=== PATIENT | male | born 1960 | race Caucasian/White ===

== ENCOUNTER 2024-11-10 10:28 | Outpatient (AMB) | payer OTHER, SELFPAY ==
--- NOTE | 2024-11-10 10:30 | MHC.OFFVIS ---
Intake Visit Reasons: PER DR LEY Allergies cat dander (CATS) Allergy (Unknown, Unverified 12/01/19 15:41) TROUBLE BREATHING, RUNNY NOSE dog dander (DOGS) Allergy (Unknown, Unverified 12/01/19 15:41) ANAPHYLAXIS Penicillins Allergy (Unknown, Unverified 12/01/19 15:41) HIVES HPI Comments Details: 64 years old man with complex underlying psychiatric history with diagnosis of complex PTSD, insulin-dependent diabetes, and osteoarthritis with bilateral knee replaced, started having forgetfulness around 2023 or a year before. He also had chronic difficulty with walking or with balancing especially upon waking up. One day he woke up and lost his balance and fell down hitting his head on the ground. He had a head MRI done last year and then another 1 this year, which according to radiologist suggested possibility of normal pressure hydrocephalus prompting this consultation. He was not known to have any seizure disorder. He was here with his . He is suspected Normal Pressure Hydrocephalus and gait disturbance. He has experienced balance issues for over three years, with a significant event occurring on October 12 when he fell and struck his head while attempting to stand. The patient?s balance problems are particularly evident when standing from a seated position or upon waking in the morning. He reports neuropathy, characterized by absent reflexes, contributing to his instability. This neuropathy is likely tied to his Type 2 Diabetes Mellitus, which requires daily insulin injections. The patient's medical history includes bilateral knee replacements for osteoarthritis. Additionally, the patient has shown signs of cognitive decline, which have raised concerns regarding Alzheimer's Disease. His psychiatric history is notable for Major Depressive Disorder, PTSD stemming from past trauma, and agoraphobia with panic attacks. Evaluation following a brain scan suggested possible Normal Pressure Hydrocephalus, although contributing factors such as osteoarthritis, neuropathy, and a past traumatic brain injury at a young age complicate the clinical picture. Review of Systems Const Details: - Neurological: Reports loss of balance, absent reflexes, and cognitive decline; Denies seizures. - Musculoskeletal: Reports bilateral knee replacements due to osteoarthritis. - Endocrinological: Reports diabetes managed with insulin. - Psychiatric: Reports history of Major Depressive Disorder, PTSD, anxiety, and agoraphobia. - Cognitive: Reports memory impairment and difficulty performing routine tasks. Physical Exam Extrem Other: Mental Status: Alert and oriented to person, place, and time. Normal attention. Normal spontaneous speech, fluency, and comprehension. Affect was depressed. Cranial Nerves: CN II: Visual pozo full to confrontation, visual acuity intact. CN III, IV, : Pupils equal, round, reactive to light and accommodation. Extraocular movements are normal. CN V: Facial sensation is normal. CN VII: Facial movements symmetrical. CN VIII: Hearing intact to bedside conversation is normal. CN IX, X: Palate elevates symmetrically. CN XI: Shoulder shrug and head turn symmetrical. CN XII: Tongue midline without atrophy or fasciculations. Deep tendon reflexes were absent with flat plantars. Joint position and vibratory sensations were absent. Slow and cautious gait with a walker with no sign of magnetic gait Extrapyramidal: Full facial expressions and blinking. No rigidity. Movements are appropriate with no tremor or abnormality. Speech: Normal; no dysarthria or tremor. Assessment & Plan Assessment & Plan (1) Multifactorial gait disorder: Code(s): R26.89 - Other abnormalities of gait and mobility Category: Medical Plan: During the visit, I discussed the various neurological and psychiatric issues presented by the patient, primarily focusing on the suspected Normal Pressure Hydrocephalus and balance issues. We explored the possibility that his neuropathic symptoms, resulting from diabetes, could contribute significantly to his gait problems. For each condition, I highlighted the appropriate management strategies, diagnostic procedures, and potential treatments, such as the need for further neurocognitive assessment to investigate the possibility of Alzheimer's Disease. Concerns were shared regarding the need for EMG studies to gauge the extent of peripheral neuropathy. I emphasized the importance of therapy and medication management for the patient's psychiatric conditions, reiterating the need for ongoing psychiatric support. (2) Dementia: Code(s): F03.90 - Unspecified dementia, unspecified severity, without behavioral disturbance, psychotic disturbance, mood disturbance, and anxiety Category: Medical Qualifiers: Dementia type: unspecified type Dementia severity: mild Dementia behavioral or psychological symptom: with other behavioral disturbance Qualified Code(s): F03.A18 - Unspecified dementia, mild, with other behavioral disturbance (3) Peripheral neuropathy: Code(s): G62.9 - Polyneuropathy, unspecified Category: Medical Qualifiers: Peripheral neuropathy type: polyneuropathy, unspecified Qualified Code(s): G62.9 - Polyneuropathy, unspecified Plan Impression: a: Multifactorial (osteoarthritis s/p b/l knee replacement, severe neuropathy, cerebral atrophy) gait disorder. 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 Overall picture is not suggestive of NPH c: Underlying complex PTSD related to childhood experience Rec: a: EMG/NCS legs to classify and grade neuropathy. It might be diabetic in nature b: Common sense precautions to avoid falling Orders: Orders NE nerve conduction velocity Today G62.9 - Polyneuropathy, unspecified NE electromyogram (EMG) Today G62.9 - Polyneuropathy, unspecified Coding Level of Care Code New Pt Level 5 (97647) Diagnoses Multifactorial gait disorder R26.89 Mild dementia with other behavioral disturbance, unspecified dementia type F03.A18 Dementia type: unspecified type Dementia severity: mild Dementia behavioral or psychological symptom: with other behavioral disturbance Peripheral polyneuropathy G62.9 Peripheral neuropathy type: polyneuropathy, unspecified
--- OUTSIDE RECORDS SUMMARY | 2024-11-10 11:46 | XMS_ITS | Encounter Summary ---
Author Organization [facility] Address [address] [place] [address] Phone Care Team Providers Care Manager Compensation Name Role Phone Catrachita Vernon Primary Care Provi nba Catrachita Vernon Primary Care Provi nba Maksim Nuñez MD Unavailable [phone] Encounter Details Date Type Department Care Team (Late st Contact Info) Description 05/31/2018 Ancillary Orders [facility] [address] [facility] [address], [address] [place] [address] Kasey Rosales MD [phone] [place] [address] [email or web address] Social History Tobacco Use Types Packs/Day Years Used Date Smoking Tobacco: Never Assessed Sex and Gender Information Value Date Recorded Sex Assigned at Not on file Legal Sex Male 1:10 PM EST Gender Identity Not on file Sexual Orientation Not on file documented as of this encounter Plan of Treatment Upcoming Encounters Date Type Department Care Team (Late st Contact Info) Description 04/05/2025 3:30 PM EST Office Visit [facility] Specialties [address] [facility], [address] [place] [address] Wolfgang Chew MD [address] [place] [phone] [email or web address] documented as of this encounter Visit Diagnoses Not on filedocumented in this encounter Care Teams Manager Compensation Relationship Specialty Start Date End Date Catrachita Vernon PA [address] [phone] PCP - General Case Planner 05/21/18 06/01/18 Catrachita Vernon PA [address] [phone] PCP - General Case Planner 06/02/18 Maksim Nuñez MD [address] [phone] Cardiology 06/02/18 documented as of this encounter Additional Source Comments The information contained in this document represents components of the legal health record. It is not the complete legal health record.[facility]
--- OUTSIDE RECORDS SUMMARY | 2024-11-10 11:46 | XMS_ITS | Encounter Summary ---
Author Organization [facility] Address [address] [place] [address] Phone Care Team Providers Care Engineering Program Manager Name Role Phone Catrachita Vernon Primary Care Provi nba Catrachita Vernon Primary Care Provi nba Maksim Nuñez MD Unavailable [phone] Reason for Referral * MRI/CAT Scan - Closed Specialty Diagnoses / Procedures Referred By Justin t Referred To Contact Radiology Diagnoses Chest pain Procedures NC Myocardial Perfusion Exercise Multiple NC Myocardial Perfusion Stress Single Kasey Rosales MD Phone: tel: fax: mailto:[email or web address] Referral ID Status Reason Start Date Expiration Date Visits Re quested Visits Authorized [id number] Closed 05/21/2018 07/20/2018 1 1 Encounter Details Date Type Department Care Team (Late st Contact Info) Description 05/31/2018 Ancillary Orders [facility] [address] [facility] [address], [address] [place] [address] Kasye Rosales MD [phone] [place] [address] [email or web address] Chest pain Social History Tobacco Use Types Packs/Day Years [...] Description 04/05/2025 3:30 PM EST Office Visit [facility] Specialties [address] [facility], [address] [place] [address] Wolfgang Chew MD [address] [place] [address] [place] [phone] [email or web address] documented as of this encounter Results * NC Myocardial Perfusion Exercise Multiple (06/01/2018 1:33 PM EDT) Nuc Stress EF 47 % LV Systolic Volume 62 mL LV Diastolic Volume 130 mL EF 52 % LV Systolic Volume Index 57 mL/m2 LV Diastolic Volume Index 109 mL/m2 Anatomical Region Laterality Modality Heart, Vascular Ultrasound Addenda Addendum by Ubaldo Rodriguez MD on 06/16/2018 12:07 PM EDT Normal study. There is no evidence of myocardial infarction or ischemia. Normal LV size and function with no regional wall motion abnormalities. Very low likelihood of hemodynamically significant coronary artery disease. Low risk study for myocardial events or cardiac in the next two years. Nuclear Study Quality Overall image quality is good. TYPE OF STUDY: Myocardial Perfusion Imaging after exercise utilizing a standard Willis protocol with gated SPECT. PROTOCOL USED: One day stress protocol only in the supine and prone position. Images were obtained after 20 minutes in gated tomographic technique. Images were processed in SPECT format, reconstructed tomographically and compared icen-am-yzxr in short axis, horizontal long axis and vertical long axis. DOSE: Technetium 99m Sestamibi 12.5 mCi injected intravenously during stress on 05/25/2018 with post injection scan time of 20 minutes. Technetium 99m Sestamibi 12.5 mCi injected intravenously during rest on 06/01/2018 with post injection scan time of 45 minutes.. Study was gated successfully. Perfusion Defect The Lung Heart Ratio is .31 . Response to Stress Patient exercised for 7:22 minutes on a standard Willis protocol achieving 10.1 METs and 91% MPHR (146 BPM). The test was terminated due to knee pain and fatigue. SUMMARY: 1. RESTING ECG: Normal sinus rhythm with RSR pattern in leads III and aVF and poor R wave progression, no acute ischemic changes. 2. EXERCISE ECG: No ECG changes that meet criteria for ischemia. 3. SYMPTOMS: No chest pain. 4. PHYSIOLOGY: Appropriate exercise physiology. Resting heart rate of 75 bpm jonah to a max heart rate of 146 bpm, this represents 91% MPHR. Resting BP of 128/80 jonah to a max BP of 200/64. Vital signs stable and returned to baseline prior to discharge from the lab. Achieved 10.1 METs consistent with good functional capacity for age. 5. ARRHYTHMIA: No ectopy noted. CONCLUSION: Normal ECG portion of exercise nuclear stress test without ECG changes suggestive of ischemia and without symptoms concerning for angina. Appropriate exercise physiology. Good functional capacity. Ocampo treadmill score of +7.5 consistent with mild risk. Nuclear images and report to follow. Irma Katz PA-C. Perfusion Comments There is no evidence of transient ischemic dilation (TID). The TID ratio was 0.9. Stress Function Comments Post-stress ejection fraction was 47%. Stress end diastolic index: 109 mL/m2. Stress end systolic index: 57 mL/m2. Nuclear Prior Study There is no prior study available for comparison. Rest Function Comments Resting ejection fraction was 52%. Rest end diastolic index: 130 mL. Rest end systolic index: 62 mL. Perfusion Scoring Stress Summed Score: 0 Percent Normal: 0.00% The left ventricular perfusion is normal. Perfusion Scoring Resting Summed Score: 0 Percent Normal: 0.00% The left ventricular perfusion is normal. us Kasey Rosales MD CV NM CARDIAC Edited Result - Final documented in this encounter Visit Diagnoses Diagnosis Chest pain Unspecified chest pain Chest pain Unspecified chest pain Chest pain of uncertain etiology- Primary documented in this encounter Care Teams Engineering Program Manager Relationship Specialty Start Date End Date Catrachita Vernon PA [address] [facility] [address] [place] [phone] PCP - [employer] Salesperson 05/21/18 06/01/18 Catrachita Vernon PA [address] [phone] PCP - [employer] Salesperson 06/02/18 Maksim Nuñez MD [address] [phone] Cardiology 06/02/18 documented as of this encounter Additional Source Comments The information contained in this document represents components of the legal health record. It is not the complete legal health record.[facility]
--- OUTSIDE RECORDS SUMMARY | 2024-11-10 11:46 | XMS_ITS | Patient Health Record ---
Author Organization [facility] [place] Address [address] [place] [address] Care Team Providers Care Email Production Specialist Name Role Phone Saulo BOUDREAUX, Catrachita Primary Care Provider Unav ailable Josy Nieves Unavailable [phone] Allergies Allergen (clinical drug ingredient) Drug/Non Drug Allergy documented on EMR Reaction Allergy Type Onset Date Status Penicillin rash Drug Allergy Active Cat dander Cat Dander severe reaction Allergy Ac tive Dog dander Dog Dander severe reaction Allergy Ac tive Reason For Referral No Information Medications Medication SIG (Take, Route, Frequency, Duration) Notes Start Date End Date Status ProAir HFA 108 (90 Base) MCG/ACT 2 puffs as needed Inhalation Active Pravastatin Sodium 40 MG Orally Once a day Active Centrum Silver Activ e HumaLOG via sliding scale as directed Active Esketamine HCl (84 MG Dose) Active Lantus as directed Active Melatonin 5 MG 1 tablet in the even ing Orally Once a day; Duration: 30 day(s) Active metFORMIN HCl 1000 MG Orally twice a day Active traZODone HCl 100 MG 1 tablet at bedtime Orally Active Extra Depth Diabetic Shoes with 3 Pair Custom heat-molded multi-density innersoles for 1 year Dx: 01/18/2018 Not-Taking buPROPion HCl ER (XL) 300 MG Orally Once a day Active Bactrim DS 800-160 MG 1 tablet Orally ev carol 12 hrs; Duration: 5 days 04/26/2021 Not-Taking Valsartan-hydroCHLOROthia zide 80-12.5 MG Orally Once a day Active ALPRAZolam 1 MG Orally 4 times a day Active Aspirin 81 MG Orally Once a day Active Synthroid 125 MCG Orally Once a day Active Immunizations Vaccine Route Administration Date Status Comme nts Influenza Unknown 01/18/2018 Administered Influenza Unknown 12/14/2020 Administered COVID-19 Moderna Vaccine Unknown 01/13/2021 Administered First Dose:04/19/2020 Second Dose:05/17/2020 Social History Tobacco Use: Social History Observation Description Date Details (start date - stop date) Former Smoker NA - 01/24/2006 Tobacco Use/Smoking Question Answer Notes Are you a: former smoker When did you stop smoking? 01/24/2006 Additional Findings: Tobacco Non-User Ex-cigaret te smoker Alcohol Screen Question Answer Notes Did you have a drink contain ing alcohol in the past year? Yes How often did you have a dri nk containing alcohol in the past year? Monthly or less (1 point) Points 1 Interpretation Negative Tobacco use other than smoking: Question Answer Notes Are you an other tobacco user? No Problems Problem Type SNOMED Code ICD Code Onset Dates Problem Status W/U Status Risk Notes Problem Acquired hallux valgus (97186186) Hallux valgus (acquired), right foot (M20.11) Active confirmed Problem Polyneuropathy due to type 2 diabetes mellitus (954681459) Type 2 diabetes mellitus with polyneuropathy (E11.42) Active confirmed Problem Leg length discrepancy (732964455) Leg length discrepancy (M21.70) Active confirmed Problem Posttraumatic stress disorder (67343052) PTSD (post-traumatic stress disorder) (F43.10) Active confirmed Problem Severe major depression, single episode, without psychotic features (68109957) Major depress dis, severe (F32.2) Active confirmed Plan Of Treatment Pending Test Test Name Order Date [id number] SKIN LESIONS, 2 TO 4 01/19/20 18 Insurance Providers Payer Name Payer Address Payer Phone Subscriber Number Group Number Insured Name Patient Relationship to Insured Coverage Start Date Coverage End Date [facility] [address] [place] [address] [id number] Aniyah Sinha Spouse - patient is the spouse of the insured Medical (General) History Medical History History ICD Code Anxiety asthma Back,Hip,and Knee pain CAD (Cholesterol) Broken bones Hypertension Depression Gall bladder problems Diabetes mellitus Neuropathy Psoriasis/eczema Psychiatric disorder thyroid complex ptsd Chicken pox Cataracts Surgical History Surgery Date(Month/Year) tonsils removed 1965 left knee meniscus 1996 left shoulder surgery 2000 right knee meniscus 2009 gall bladder removed and hernia repair 1
--- OUTSIDE RECORDS SUMMARY | 2024-11-10 11:46 | XMS_ITS | Clinical Summary ---
Author Organization [facility] Address [address] [place] [address] Phone Care Team Providers Care Immigration Specialist Name Role Phone Catrachita Vernon Primary Care Provi nba Maksim Nuñez MD Unavailable [phone] Social History Tobacco Use Types Packs/Day Years Used Date Smoking Tobacco: Never Assessed Education Answer Date Recorded Are you interested in more education? Not on misty e 07/11/2022 Are you concerned about learning? Not on file 07/11/2022 No 07/11/2022 No 07/11/2022 Digital Access Answer Date Recorded No 08/09/2022 No 08/09/2022 No 08/09/2022 Reliable internet access at home? Not on file 08/09/2022 Device with a working camera? Not on file Sex and Gender Information Value Date Recorded Sex Assigned at Not on file Legal Sex Male 1:10 PM EST Gender Identity Not on file Sexual Orientation Not on file Last Filed Vital Signs Vital Sign Reading Time Taken Comments Blood Pressure 158/60 05/25/2018 1:27 PM EDT Pulse - - Temperature - - Respiratory Rate - - Oxygen Saturation - - Inhaled Oxygen Concentration - - Weight - - Height - - Body Mass Index - - Plan of Treatment Upcoming Encounters Date Type Department Care Team (Late st Contact Info) Description 04/05/2025 3:30 PM EST Office Visit [facility] Specialties [address] [facility], [address] [place] [address] Wolfgang Chew MD [address] [phone] [email or web address] Maintenance Due Date Last Done Comments LIPID PANEL 1958 DEPRESSION SCREENING 1970 SMOKING Hx and SMOKELESS TOBACCO SCREENING 1971 HEPATITIS C SCREENING 1976 COLOGUARD 2003 COLONOSCOPY 2003 COLORECTAL CANCER SCREENING 2003 FIT TEST 2003 FOBT 2003 SIGMOIDOSCOPY 2003 VIRTUAL COLONOSCOPY 2003 ZOSTER VACCINES (1 of 2) 2008 PNEUMOCOCCAL VACCINES (50+ years) (3 of 3 - PCV20 or PCV21) 01/02/2021 01/03/2016, 06/24/2007 COVID-19 VACCINE (2 - 2023-2 5 season) 2023 05/09/2020 Adult Td,Tdap Booster 07/17/2027 07/16/2017 , 12/23/2007 RSV VACCINE (1 - 1-dose 75+ series) 2033 HEPATITIS A VACCINES Aged Out No long er eligible based on patient's age to complete this topic HIB VACCINES Aged Out No longer eligi ble based on patient's age to complete this topic MENINGOCOCCAL VACCINES (ACWY) Aged Out No longer eligible based on patient's age to complete this topic MENINGOCOCCAL VACCINES (B) Aged Out N o longer eligible based on patient's age to complete this topic Medical Devices Not on file Procedures Procedure Name Priority Date/Time Associated Diagnosis Comments OUTSIDE LAB 10/19/2024 from Last 3 Months Results * Outside Lab (10/19/2024) us Scanning Interface Provider LAB BLOOD ORDERABLES Final Result from Last 3 Months Insurance [facility] Member Subscriber Plan / Payer (Ef fective 2024-Present) Name:Darrius Sinha Relation to Subscriber:Self Name:Darrius Sinha Payer ID:Not on file Type:PPO Address: [place] [id number] Care Teams Immigration Specialist Relationship Specialty Start Date End Date Catrachita Vernon PA [address] [phone] PCP - General Refrigerator Tester 06/02/18 Maksim Nuñez MD [address] [phone] Cardiology 06/02/18 Additional Source Comments The information contained in this document represents components of the legal health record. It is not the complete legal health record.[facility]
== END 2024-11-10 16:25 | disposition home or self-care (01) ==
PROVIDERS: Visit Provider Psychiatry & Neurology Neurology
DX: R26.89 Other abnormalities of gait and mobility (principal); F03.A18 Unspecified dementia, mild, with other behavioral disturbance; G62.9 Polyneuropathy, unspecified
CPT/HCPCS: 99203

== ENCOUNTER 2024-11-21 09:48 | Outpatient (REF) | payer OTHER, SELFPAY ==
--- NOTE | 2024-11-21 11:03 | EMG_ITS ---
Chief Complaint: Balance issues, polyneuropathy History: 64 years old man with complex underlying psychiatric history with diagnosis of complex PTSD, insulin-dependent diabetes, and osteoarthritis with bilateral knee replaced, started having forgetfulness around 2023 or a year before. He also had chronic difficulty with walking or with balancing especially upon waking up. One day he woke up and lost his balance and fell down hitting his head on the ground. He had a head MRI done last year and then another 1 this year, which according to radiologist suggested possibility of normal pressure hydrocephalus prompting this consultation. H/O Type 2 diabetes, knee replacement, major depression Procedure: Nerve conduction study and EMG of bilateral lower extremities Bilateral tibial and peroneal motor studies were performed bilateral superficial peroneal and sural sensory studies were performed and tibial H reflexes were obtained. EMG needle examination was performed. Impression: Mild axonal, sensory more than motor, chronic peripheral neuropathy MTDD
--- OUTSIDE RECORDS SUMMARY | 2024-11-21 11:21 | XMS_ITS | Patient Health Record ---
Author Organization [facility] [place] Address [address] [place] [address] Care Team Providers Care Veneer Drier Feeder Name Role Phone Saulo BOUDREAUX, Catrachita Primary Care Provider Unav ailable Josy Nieves Unavailable [phone] Allergies Allergen (clinical drug ingredient) Drug/Non Drug [...] Status Risk Notes Problem Acquired hallux valgus (18223582) Hallux valgus (acquired), right foot (M20.11) Active confirmed Problem Polyneuropathy due to type 2 diabetes mellitus (412848689) Type 2 diabetes mellitus with polyneuropathy (E11.42) Active confirmed Problem Leg length discrepancy (229540500) Leg length discrepancy (M21.70) Active confirmed Problem Posttraumatic stress disorder (90752012) PTSD (post-traumatic stress disorder) (F43.10) Active confirmed Problem Severe major depression, single episode, without psychotic features (98054609) Major depress dis, severe (F32.2) Active confirmed Plan Of Treatment Pending Test Test Name Order Date 58814-SOHW SKIN LESIONS, 2 TO 4 01/19/20 18 Insurance Providers Payer Name Payer Address Payer Phone Subscriber Number Group Number Insured Name Patient Relationship to Insured Coverage Start Date Coverage End Date [facility] [address] [place] [address] [id number] Aniyah Sinha Spouse - patient is [...]
--- OUTSIDE RECORDS SUMMARY | 2024-11-21 11:21 | XMS_ITS | Encounter Summary ---
Author Organization [facility] Address [address] [place] [address] Phone Care Team Providers Care Pyridine Operator Name Role Phone Catrachita Vernon Primary Care Provi nba Catrachita Vernon Primary Care Provi nba Maksim Nuñez MD Unavailable [phone] Encounter Details Date Type Department Care Team (Late st Contact Info) Description 05/31/2018 Ancillary Orders [facility] [address] [facility] [address], [address] [place] [address] Kasey Rosales MD [address] [place] [address] [email or web address] Social History Tobacco Use Types Packs/Day Years [...] Description 04/05/2025 3:30 PM EST Office Visit [facility] Specialties [address] [facility], [address] [place] [address] Wolfgang Chew MD [address] [place] [phone] [email or web address] documented as of this encounter Visit Diagnoses Not on filedocumented in this encounter Care Teams Pyridine Operator Relationship Specialty Start Date End Date Catrachita Vernon PA [address] [phone] PCP - General Gas Tender 05/21/18 06/01/18 Catrachita Vernon PA [address] [phone] PCP - General Gas Tender 06/02/18 Maksim Nuñez MD [address] [phone] Cardiology 06/02/18 documented as of this encounter Additional Source Comments The information contained in this document represents components of the legal health record. It is not the complete legal health record.[facility]
--- OUTSIDE RECORDS SUMMARY | 2024-11-21 11:21 | XMS_ITS | Clinical Summary ---
Author Organization [facility] Address [address] [place] [address] Phone Care Team Providers Care Ear Muff Assembler Name Role Phone Catrachita [place] Primary Care Provi nba Maksim Nuñez MD Unavailable [phone] Social History Tobacco Use Types Packs/Day [...] Description 04/05/2025 3:30 PM EST Office Visit [facility] Specialties [address] [facility], [address] [place] [address] Wolfgang Chew MD [address] [place] [phone] [email or web address]. [place] Health Maintenance Due Date Last Done Comments LIPID PANEL 1958 DEPRESSION SCREENING 1970 SMOKING Hx and SMOKELESS TOBACCO SCREENING 1971 HEPATITIS C SCREENING 1976 COLOGUARD 2003 COLONOSCOPY 2003 COLORECTAL CANCER SCREENING 2003 FIT TEST 2003 FOBT 2003 SIGMOIDOSCOPY 2003 VIRTUAL COLONOSCOPY 2003 ZOSTER VACCINES (1 of 2) 2008 PNEUMOCOCCAL VACCINES (50+ years) (3 of 3 - PCV20 or PCV21) 01/02/2021 01/03/2016, 06/24/2007 INFLUENZA VACCINE (#1) 2024 , 01/19/2019, 11/27/2017, Additional history exists COVID-19 VACCINE (2 - season) 2024 05/09/2020 Adult Td,Tdap Booster 07/17/2027 07/16/2017, 008 RSV VACCINE (1 - 1-dose 75+ series) [...] Final Result from Last 3 Months Insurance [facility] Care Teams Ear Muff Assembler Relationship Specialty Start Date End Date Catrachita Vernon PA [address] [phone] PCP - [employer] Spot Welder 06/02/18 Maksim Nuñez MD [address] [phone] Cardiology 06/02/18 Additional Source Comments The information contained in this document represents components of the legal health record. It is not the complete legal health record.[facility]
--- OUTSIDE RECORDS SUMMARY | 2024-11-21 11:21 | XMS_ITS | Encounter Summary ---
Author Organization [facility] Address [address] [place] [address] Phone Care Team Providers Care Prenatal Nurse Name Role Phone Catrachita Vernon Primary Care Provi nba Catrachita [place] Primary Care Provi nba Maskim Nuñez MD Unavailable [phone] Reason for Referral * MRI/CAT Scan - Closed Specialty Diagnoses / Procedures Referred By Justin t Referred To Contact Radiology Diagnoses Chest pain Procedures NC Myocardial Perfusion Exercise Multiple NC Myocardial Perfusion Stress Single Kasey Rosales MD Phone: tel: fax: mailto:[email or web address] Referral ID Status Reason Start Date Expiration Date Visits Re quested Visits Authorized [id number] Closed 05/21/2018 07/20/2018 1 1 Encounter Details Date Type Department Care Team (Late st Contact Info) Description 05/31/2018 Ancillary Orders [facility] [address] [facility] [address] [facility], [address] [place] [address] Kasey Rosales MD [address] [place] [address] [email or web address] Chest pain Social History Tobacco Use [...] Description 04/05/2025 3:30 PM EST Office Visit [facility] Specialties [address] [facility], [address] [place] [address] Wolfgang Chew MD [address] [place] [address] [place] [phone] [email or web address] documented as of this encounter Results [...] in SPECT format, reconstructed tomographically and compared [id number] in short axis, horizontal long axis and [...] Primary documented in this encounter Care Teams Prenatal Nurse Relationship Specialty Start Date End Date Catrachita Vernon PA [address] [facility] [address] [place] [phone] PCP - General Picked Edge Sewing Machine Operator 05/21/18 06/01/18 Catrachita Vernon PA [address] [phone] PCP - General Picked Edge Sewing Machine Operator 06/02/18 Maksim Nuñez MD [address] [phone] Cardiology 06/02/18 documented as of this encounter Additional Source Comments The information contained in this document represents components of the legal health record. It is not the complete legal health record.[facility]
== END 2024-11-21 09:49 | disposition home or self-care (01) ==
LOC: HO.NEURO 09:48
PROVIDERS: PCP Physician Assistant Medical; Visit Provider Psychiatry & Neurology Neurology
DX: G62.9 Polyneuropathy, unspecified (principal); R26.2 Difficulty in walking, not elsewhere classified; E11.9 Type 2 diabetes mellitus without complications; R26.89 Other abnormalities of gait and mobility; Z91.81 History of falling; Z79.4 Long term (current) use of insulin; Z96.653 Presence of artificial knee joint, bilateral
CPT/HCPCS: 95886; 95911

== ENCOUNTER → 2024-11-21 11:03 | Outpatient (BNV) | payer OTHER, SELFPAY | PROVIDERS: PCP Physician Assistant Medical; Visit Provider Psychiatry & Neurology Neurology | DX: G62.9 Polyneuropathy, unspecified (principal) | CPT/HCPCS: 95886; 95911 ==

== ENCOUNTER 2024-11-28 13:56 | Outpatient (REF) | payer OTHER, SELFPAY ==
[2024-11-28 16:23] LABS: Folate 12.9 ng/mL (> or = 4.0); Vitamin B12 1119 pg/mL (200-900)
[2024-11-29 05:28] LABS: Lyme Abs Screen <0.90 index
== END 2024-11-28 13:57 | disposition home or self-care (01) ==
LOC: HO.LAB 13:56
PROVIDERS: PCP Physician Assistant Medical; Visit Provider Psychiatry & Neurology Neurology
DX: R26.89 Other abnormalities of gait and mobility (principal); G62.9 Polyneuropathy, unspecified; F03.A18 Unspecified dementia, mild, with other behavioral disturbance; Z01.84 Encounter for antibody response examination
CPT/HCPCS: 36415; 82607; 82746; 82784; 86334; 86617; 86618

== ENCOUNTER 2024-11-28 13:56 | Outpatient (AMB) | payer OTHER, SELFPAY ==
--- NOTE | 2024-11-28 14:01 | MHC.OFFVIS ---
Intake Visit Reasons: RESULTS Allergies cat dander (CATS) Allergy (Unknown, Unverified 12/01/19 15:41) TROUBLE BREATHING, RUNNY NOSE dog dander (DOGS) Allergy (Unknown, Unverified 12/01/19 15:41) ANAPHYLAXIS Penicillins Allergy (Unknown, Unverified 12/01/19 15:41) HIVES HPI Comments Details: 64 years old man with complex underlying psychiatric history with diagnosis of complex PTSD, insulin-dependent diabetes, and osteoarthritis with bilateral knee replaced, started having forgetfulness around 2023 or a year before. He also had chronic difficulty with walking or with balancing especially upon waking up. One day he woke up and lost his balance and fell down hitting his head on the ground. He had a head MRI done last year and then another 1 this year, which according to radiologist suggested possibility of normal pressure hydrocephalus prompting this consultation. He was here to discuss results of his tests. In addition he and his had number of questions that were answered. [facility] Medical History (Updated 11/28/24 @ 14:34 by Lily Kelley MD) Multifactorial gait disorder Dementia Review of Systems Const Details: Difficulty walking and sometime frequent urination especially when he drank too much fluid. Mood was depressed. Physical Exam Neuro Other: Mental Status: Alert and oriented to person, place, and time. Normal attention. Normal spontaneous speech, fluency, and comprehension. Affect is flat. Cranial Nerves: CN II: Visual pozo full to confrontation, visual acuity intact. CN III, IV, : Pupils equal, round, reactive to light and accommodation. Extraocular movements are normal. CN V: Facial sensation is normal. CN VII: Facial movements symmetrical. CN VIII: Hearing intact to bedside conversation is normal. CN IX, X: Palate elevates symmetrically. CN XI: Shoulder shrug and head turn symmetrical. CN XII: Tongue midline without atrophy or fasciculations. Slow based cautious gait with a walker. Extrapyramidal: Full facial expressions and blinking. No rigidity. Movements are appropriate with no tremor or abnormality. Speech: Normal; no dysarthria or tremor. Assessment & Plan Assessment & Plan (1) Multifactorial gait disorder: Comment: NMRI brain WO at [place] in Oct 2024: No change MRI brain WO at [facility] in May 2023: Mod central and cortical atrophy, minimal MVD EMG/NCS at [facility] in Nov 2024: Mild axonal SM PN Code(s): R26.89 - Other abnormalities of gait and mobility Category: Medical (2) Peripheral neuropathy: Code(s): G62.9 - Polyneuropathy, unspecified Category: Medical Qualifiers: Peripheral neuropathy type: polyneuropathy, unspecified Qualified Code(s): G62.9 - Polyneuropathy, unspecified (3) Dementia: Code(s): F03.90 - Unspecified dementia, unspecified severity, without behavioral disturbance, psychotic disturbance, mood disturbance, and anxiety Category: Medical Qualifiers: Dementia type: unspecified type Dementia severity: mild Dementia behavioral or psychological symptom: with other behavioral disturbance Qualified Code(s): F03.A18 - Unspecified dementia, mild, with other behavioral disturbance Plan Impression: a: Multifactorial (osteoarthritis s/p b/l knee replacement, severe neuropathy, cerebral atrophy) gait disorder. 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 Overall picture is not suggestive of NPH c: Underlying complex PTSD related to childhood experience d: Mild diabetic neuropathy Rec: a: Walker b: Common sense measures to avoid falls c: Memantine 5mg bid d: Continue to f/u with psychiatrist e. Depending upon his progression, I have might consider a lumbar puncture. Orders: Orders Vitamin B12 and Folate Today G62.9 - Polyneuropathy, unspecified Immunofixation Pnl, Serum Today G62.9 - Polyneuropathy, unspecified Lyme IgG/IgM w/reflex to WB Today G62.9 - Polyneuropathy, unspecified Medications: New memantine (Namenda) 5 mg PO BID 180 tabs 0RF Coding Level of Care Code Est Pt Level 5 (72810) Diagnoses Multifactorial gait disorder R26.89 Peripheral polyneuropathy G62.9 Peripheral neuropathy type: polyneuropathy, unspecified Mild dementia with other behavioral disturbance, unspecified dementia type F03.A18 Dementia type: unspecified type Dementia severity: mild Dementia behavioral or psychological symptom: with other behavioral disturbance
--- OUTSIDE RECORDS SUMMARY | 2024-11-28 19:19 | XMS_ITS | Encounter Summary ---
Author Organization [facility] Address [address] [place] [address] Phone Care Team Providers Care Dairy Nutrition Consultant Name Role Phone Catrachita Vernon Primary Care Provi nba Catrachita Vernon Primary Care Provi nba Maksim Nuñez MD Unavailable [phone] Encounter Details Date Type Department Care Team (Late st Contact Info) Description 05/31/2018 Ancillary Orders [facility] [address] [facility], [address] [place] [address] Kasey Rosales MD [address] [place] [address] [email or web address] Social History Tobacco Use [...] Description 04/05/2025 3:30 PM EST Office Visit [facility] Specialties [address] [facility], [address] [place] [address] Wolfgang Chew MD [address] [place] [phone] [email or web address]. [email or web address] documented as of this encounter Visit Diagnoses Not on filedocumented in this encounter Care Teams Dairy Nutrition Consultant Relationship Specialty Start Date End Date Catrachita Vernon PA [address] [phone] PCP - General Deputy Sheriff 05/21/18 06/01/18 Catrachita Vernon PA [address] [phone] PCP - General Deputy Sheriff 06/02/18 Maksim Nuñez MD [address] [phone] Cardiology 06/02/18 documented as of this encounter Additional Source Comments The information contained in this document represents components of the legal health record. It is not the complete legal health record.[facility]
--- OUTSIDE RECORDS SUMMARY | 2024-11-28 19:19 | XMS_ITS | Patient Health Record ---
Author Organization [facility] [place] Address [address] [facility] [place] [address] Care Team Providers Care Vegetable Loader Machine Operator Name Role Phone Saulo BOUDREAUX, Catrachita Primary Care Provider Unav ailable Josy Nieves Unavailable [phone] Allergies Allergen (clinical drug ingredient) Drug/Non Drug [...] Status Risk Notes Problem Acquired hallux valgus (35617658) Hallux valgus (acquired), right foot (M20.11) Active confirmed Problem Polyneuropathy due to type 2 diabetes mellitus (207287490) Type 2 diabetes mellitus with polyneuropathy (E11.42) Active confirmed Problem Leg length discrepancy (160290037) Leg length discrepancy (M21.70) Active confirmed Problem Posttraumatic stress disorder (15762847) PTSD (post-traumatic stress disorder) (F43.10) Active confirmed Problem Severe major depression, single episode, without psychotic features (74465327) Major depress dis, severe (F32.2) Active confirmed Plan Of Treatment Pending Test Test Name Order Date 91280-DNTA SKIN LESIONS, 2 TO 4 01/19/20 18 Insurance Providers Payer Name Payer Address Payer Phone Subscriber Number Group Number Insured Name Patient Relationship to Insured Coverage Start Date Coverage End Date [facility] [address] [place] [address] [id number] Aniyah Sinha Spouse - patient is [...]
--- OUTSIDE RECORDS SUMMARY | 2024-11-28 19:19 | XMS_ITS | Clinical Summary ---
Author Organization [facility] Address [address] [place] [address] Phone Care Team Providers Care Sand Buffer Name Role Phone Catrachita Vernon Primary Care Provi nba Maksim Nuñez MD Unavailable [phone] Social History Tobacco Use Types Packs/Day [...] Description 04/05/2025 3:30 PM EST Office Visit [facility] Specialties [address] [facility], [address] [place] [address] Wolfgang Chew MD [address] [place] [phone] [email or web address]. [place] Health Maintenance Due Date Last Done [...] Final Result from Last 3 Months Insurance [facility] Care Teams Sand Buffer Relationship Specialty Start Date End Date Catrachita Vernon PA [address] [phone] PCP - General Credit Rating Checker 06/02/18 Maksim Nuñez MD [address] [phone] Cardiology 06/02/18 Additional Source Comments The information contained in this document represents components of the legal health record. It is not the complete legal health record.[facility]
--- OUTSIDE RECORDS SUMMARY | 2024-11-28 19:19 | XMS_ITS | Encounter Summary ---
Author Organization [facility] Address [address] [place] [address] Phone Care Team Providers Care Firmware Manager Name Role Phone Catrachita Vernon Primary Care Provi nba Catrachita Vernon Primary Care Provi nba Maksim Nuñez MD Unavailable [phone] Reason for Referral * MRI/CAT Scan - Closed Specialty Diagnoses / Procedures Referred By Justin t Referred To Contact Radiology Diagnoses Chest pain Procedures NC Myocardial Perfusion Exercise Multiple NC Myocardial Perfusion Stress Single Kasey Rosales MD Phone: tel: fax: mailto:[email or web address] Referral ID Status Reason Start Date Expiration Date Visits Re quested Visits Authorized [id number] Closed 05/21/2018 07/20/2018 1 1 Encounter Details Date Type Department Care Team (Late st Contact Info) Description 05/31/2018 Ancillary Orders [facility] [address], [address] [place] [address] Kasey Rosales MD [address] [place] [address] [email or web address] Chest pain Social History Tobacco Use [...] Description 04/05/2025 3:30 PM EST Office Visit [facility] Specialties [address] [facility], [address] [place] [address] Wolfgang Chew MD [address] [place] [address] [place] [phone] [email or web address]. [email or web address] documented as of this encounter Results [...] in SPECT format, reconstructed tomographically and compared nnri-em-xlar in short axis, horizontal long axis and [...] Primary documented in this encounter Care Teams Firmware Manager Relationship Specialty Start Date End Date Catrachita Vernon PA [address] [facility] [address] [place] [phone] PCP - General Custodial Engineer 05/21/18 06/01/18 Catrachita Vernon PA [address] [phone] PCP - General Custodial Engineer 06/02/18 Maksim Nuñez MD [address] [phone] Cardiology 06/02/18 documented as of this encounter Additional Source Comments The information contained in this document represents components of the legal health record. It is not the complete legal health record.[facility]
== END 2024-11-28 14:34 | disposition home or self-care (01) ==
LOC: HO.HSM 13:57
PROVIDERS: Visit Provider Psychiatry & Neurology Neurology
DX: E11.42 Type 2 diabetes mellitus with diabetic polyneuropathy (principal); F03.A18 Unspecified dementia, mild, with other behavioral disturbance; R26.89 Other abnormalities of gait and mobility
CPT/HCPCS: 99214